=== PATIENT | female | born 1940 | race Caucasian/White ===

== ENCOUNTER 2019-01-25 11:45 | Emergency (ER) | payer OTHER ==
[~2019-01-25] VITALS: Ht 154.9 cm; Wt 60.8 kg
[2019-01-25] MEDS ORDERED: ASPirin 81 mg TAB PO ONE (12:00)
[2019-01-25 13:23] LABS: Basophils # (auto) 0.1 uL; Basophils % (auto) 0.9 % (0.0-2.0); Eosinophils # (auto) 0.1 uL; Eosinophils % (auto) 2.3 % (0.0-7.0); Hematocrit 31.6 % (36.0-46.0); Hemoglobin 10.4 g/dL (12.2-16.2); Lymphocytes # (auto) 0.8 uL; Lymphocytes % (auto) 12.4 % (10.0-50.0); Mean Corpuscular Hemoglobin 31.7 pg (28.0-32.0); Mean Corpuscular Hgb Conc. 32.8 g/dL (32.0-36.0); Mean Corpuscular Volume 96.6 fL (80.0-100.0); Monocytes # (auto) 0.4 uL; Neutrophils % (auto) 78.4 % (37.0-80.0); Platelet Count (auto) 245 10^3/uL (140-450); Red Blood Cells 3.27 10^6/uL (4.0-5.20); White Blood Cell 6.4 10^3/uL (4.4-10.8)
[2019-01-25 13:42] LABS: INR 2.93 (0.9-1.15); Partial Thromboplastin Time 39.7 sec (23.78-33.04); Prothrombin Time 29.5 sec (9.27-12.13)
[2019-01-25 13:44] LABS: Albumin 3.4 g/dL (3.4-5.0); Calcium 9.2 mg/dL (8.5-10.1); Magnesium 2.3 mg/dL (1.6-2.6); Potassium 3.9 mmol/L (3.5-5.1)
[2019-01-25 13:49] LABS: Bilirubin, Total 0.6 mg/dL (0.2-1.0); Total Protein 8.2 g/dL (6.4-8.2)
[2019-01-25] MEDS ORDERED: FUROSEMIDE 40 MG/4 ML VIAL IV ONE (16:00)
[2019-01-25 18:21] VITALS: BP 155/86
== END 2019-01-25 19:08 | disposition home or self-care (01) ==
LOC: ER 11:50
DX: M54.5 Low back pain (principal); I48.91 Unspecified atrial fibrillation; J44.9 Chronic obstructive pulmonary disease, unspecified; E11.9 Type 2 diabetes mellitus without complications; E78.5 Hyperlipidemia, unspecified; I11.0 Hypertensive heart disease with heart failure; I50.9 Heart failure, unspecified; Z90.49 Acquired absence of other specified parts of digestive tract; Z90.710 Acquired absence of both cervix and uterus
CPT/HCPCS: 36415; 71045; 80053; 83735; 83880; 84484; 85025; 85610; 85730; 93005; 94761; 96374; 99284; J1940

== ENCOUNTER 2019-03-25 02:06 | Emergency (ER) | payer OTHER, MEDICAID ==
[2019-03-25] MEDS ORDERED: SODIUM CHLORIDE 0.9% 1,000 ML IVB ONE (02:27)
[2019-03-25 02:44] VITALS: BP 128/55
== END 2019-03-25 02:51 | disposition expired ==
LOC: EDBD 02:06 → ER 02:07
DX: I46.9 Cardiac arrest, cause unspecified (principal); J44.9 Chronic obstructive pulmonary disease, unspecified; I11.0 Hypertensive heart disease with heart failure; I50.9 Heart failure, unspecified; I48.91 Unspecified atrial fibrillation; E11.9 Type 2 diabetes mellitus without complications; G89.29 Other chronic pain; M54.9 Dorsalgia, unspecified; Z90.49 Acquired absence of other specified parts of digestive tract; Z90.710 Acquired absence of both cervix and uterus; Z90.89 Acquired absence of other organs
CPT/HCPCS: 36600; 82805; 92950; 94002; 94761; 99291